=== PATIENT | male | born 1950 | race Caucasian/White ===

== ENCOUNTER → 2017-04-12 | Outpatient (CLI) | payer MEDICARE, OTHER ==
[~2017-04-12] MED LIST: AMLO5TAB2 PO; ATOR20TA66 PO; ENAL20TA PO; MELO15TA39 PO; METF500T4 PO; PITA2TAB2 PO
--- NOTE | 2017-04-12 10:31 | Diagnostic Imaging Report ---
PA and lateral views of the chest. INDICATION: Cough. FINDINGS: The lungs are clear. The heart size is normal. There is no effusion or pneumothorax The mediastinum and rosalba appear unremarkable. There is bridging syndesmophytes in the thoracic spine. IMPRESSION: Unremarkable exam. Dictated by: Dictated on workstation # [id number]
== END ==
LOC: RAD 08:51
PROVIDERS: ATTEND Family Medicine
DX: R05 Cough (principal)
CPT/HCPCS: 71020

== ENCOUNTER 2017-08-25 15:01 | Outpatient (CLI) | payer MEDICARE, OTHER ==
[~2017-08-25] VITALS: Ht 182.9 cm; Wt 112.5 kg
[~2017-08-25 15:01] MED LIST changes: -MELO15TA39 PO; -PITA2TAB2 PO
[2017-08-25] MEDS ORDERED: PITA2TAB2 PO (15:24)
[2017-08-25] MEDS ORDERED: MELO15TA39 PO (15:24)
== END 2017-08-25 15:27 ==
LOC: PREOP 15:01
PROVIDERS: ATTEND Surgery
DX: Z01.818 Encounter for other preprocedural examination (principal); C43.9 Malignant melanoma of skin, unspecified

== ENCOUNTER 2017-09-01 09:54 | Day surgery (SDC) | payer MEDICARE, OTHER ==
[~2017-09-01] VITALS: Ht 182.9 cm; Wt 112.5 kg
[~2017-09-01 09:54] MED LIST changes: +MELO15TA39 PO; +PITA2TAB2 PO
[2017-09-01 10:05] VITALS: BP 135/81
[2017-09-01] MEDS ORDERED: ceFAZolin 2 GM/NS 50 ML IV ONE (10:30)
[2017-09-01] MEDS ORDERED: BUPIVACAINE 0.5% 30 ML (SENSORCAINE) VIAL ONE (11:45)
[2017-09-01] MEDS ORDERED: LIDOCAINE 1% INJ 20 ML (XYLOCAINE) VIAL ONE (11:45)
[2017-09-01] MEDS ORDERED: MIDAZOLAM 2 MG/2 ML (VERSED) VIAL ONE (11:46)
[2017-09-01] MEDS ORDERED: fentaNYL INJECTION 100 MCG/2 ML AMP ONE (11:46)
--- NOTE | 2017-09-01 13:09 | Progress Note-Pre Operative ---
Pre-Operative Progress Note H&P Reviewed The H&P was reviewed, patient examined and no changes noted. Date Seen by Provider: Sep 01, 2017 Time Seen by Provider: 12:00 Date H&P Reviewed: Sep 01, 2017 Time H&P Reviewed: 12:00 Pre-Operative Diagnosis: melanoma back JEM VÁZQUEZ DO Sep 01, 2017 13:08
--- NOTE | 2017-09-01 13:10 | Progress Note-Post Operative ---
Post-Operative Progess Note Surgeon (s)/Meter Mechanic (s) Surgeon JEM VÁZQUEZ DO Meter Mechanic: na Pre-Operative Diagnosis melanoma back Post-Operative Diagnosis same Procedure & Operative Findings Date of Procedure 09/01/17 Procedure Performed/Findings wide excision melanoma 3x7 cm Anesthesia Type mac c local 30 mL 50/50 -1% lidocaine 0.5% marcaine Estimated Blood Loss Estimated blood loss (mL): minimal Specimens/Packing Specimens Removed melanoma JEM VÁZQUEZ DO Sep 01, 2017 13:10
[2017-09-01] MEDS ORDERED: HYDR-3812 PO (13:11)
--- NOTE | 2017-09-01 13:12 | Discharge Inst-Simple/Standard ---
Discharge Inst-Standard Discharge Medications New, Converted or Re-Newed RX: RX on Chart Patient Instructions/Follow Up Plan of Care/Instructions/FU: 2 weeks Deena Activity as Tolerated: No Discharge Diet: Regular Diet Other Inst to Patient Follow up Appt: Make appointment for 2 week. Instructions: No lifting greater than 10 pounds. No strenuous activity. May shower in 24 hours, no tub bath or soaking. Use incentive spirometer at home as directed. No Smoking Skin/Wound Care: May remove bandages in 24 hours. Symptoms to Report: Appetite Changes, Extremity Discoloration, Numbness/Tingling, Swelling Increased , Bleeding Excessive, Eyesight Changes, Pain Increased, Urine Color Change, Constipation(Persistent), Fever over 101 degree F, Pain/Pressure in chest, Urinating Difficulty, Cough Up/Vomit Blood, Heart Beat Irreg/Pounding, Pain/ Pressure in jaw, Vaginal Bleeding Increase, Cramps in feet or legs, Lightheadedness, Pain/Pressure in shoulder, Diarrhea(Persistent), Memory Changes Suddenly, Questions/Concerns, Weight gain consecutive days, Dizziness/ Fainting, Nausea/Vomiting, Shortness of Breath, Weight gain over 2 pounds If questions or concerns contact your physician Or seek help at emergency department. JEM VÁZQUEZ DO Sep 01, 2017 13:12
[2017-09-01] MEDS ORDERED: ONDANSETRON 4 MG/2 ML (SDV) Z0FRAN IVP PRN (13:30)
[2017-09-01] MEDS ORDERED: fentaNYL INJECTION 100 MCG/2 ML AMP IVP PRN (13:30)
[2017-09-01 13:45] VITALS: BP 139/80
[2017-09-01 13:50] VITALS: BP 139/80
[2017-09-01 14:15] VITALS: BP 136/84
--- NOTE | 2017-09-08 23:53 | OPERATIVE REPORT ---
DATE OF SERVICE: 09/01/2017 PREOPERATIVE DIAGNOSIS: Melanoma, back. POSTOPERATIVE DIAGNOSIS: Melanoma, back. PROCEDURE: Wide excision melanoma 3 x 7 cm. ANESTHESIA: MAC with local, 30 mL of 0.5% Marcaine and 1% lidocaine 50:50 ratio. SURGEON: Jem Shaffer DO ESTIMATED BLOOD LOSS: Minimal. COMPLICATIONS: None. INDICATIONS: The patient is a 67-year-old male with biopsy demonstrating melanoma. He was explained risks and benefits of procedure and wished to proceed with procedure. Consent was signed in the chart. PROCEDURE: The patient was taken to the operating suite, was prepped and draped in sterile fashion. Surgical pause was performed. Elliptical incision around the scar was made after local anesthetic was infiltrated into the area. Overall, dimensions 3 x 7 cm. The skin and subcutaneous tissues were removed with both sharp and cautery dissection. Once removed, the specimen was labeled with a short suture superiorly and long suture lateral. The skin was then mobilized and the skin was then closed using 2-0 Prolene in a vertical mattress fashion. After this, the skin was then washed and dried and sterile bandage was applied. The patient tolerated procedure well without any complications and was taken to recovery room in stable condition. Job ID: [id number] DocumentID: [id number] Dictated Date: 09/08/2017 17:10:34 International Marketing Specialist Date: 09/08/2017 23:52:47 Dictated By: JEM SHAFFER DO
== END 2017-09-01 14:30 | disposition home or self-care (01) ==
LOC: SDC 09:54
PROVIDERS: ATTEND Surgery
DX: L90.5 Scar conditions and fibrosis of skin (principal); C43.59 Malignant melanoma of other part of trunk; E11.9 Type 2 diabetes mellitus without complications; I10 Essential (primary) hypertension; G47.33 Obstructive sleep apnea (adult) (pediatric); Z79.84 Long term (current) use of oral hypoglycemic drugs; Z79.899 Other long term (current) drug therapy; Z87.891 Personal history of nicotine dependence
CPT/HCPCS: 82962; 87081

== ENCOUNTER → 2017-11-16 | Outpatient (CLI) | payer MEDICARE, OTHER ==
[~2017-11-16] MED LIST changes: +ACHD5005 PO
--- NOTE | 2017-11-16 10:00 | Diagnostic Imaging Report ---
INDICATION: PERSISTENT COUGH. COMPARISON: 04/12/2017. FINDINGS: Frontal and lateral views of the chest demonstrate normal heart size and pulmonary vascularity. The lungs are clear. There are no signs of infiltrate, pleural effusions, or pneumothoraces. The visualized osseous structures show no acute abnormalities. IMPRESSION: No acute process. No signs of infiltrates, effusions, or pneumothoraces. Dictated by: Dictated on workstation # [id number]
== END ==
LOC: RAD 09:05
PROVIDERS: ATTEND Family Medicine
DX: R05 Cough (principal)
CPT/HCPCS: 71046

== ENCOUNTER 2018-01-10 18:00 | Outpatient (RCR) | payer MEDICARE, OTHER ==
[~2018-01-10 18:00] MED LIST changes: -METF500T4 PO; +METF500T5 PO
== END 2018-04-10 | disposition home or self-care (01) ==
LOC: DSME 18:00
PROVIDERS: ATTEND Family Medicine
DX: E11.9 Type 2 diabetes mellitus without complications (principal); I10 Essential (primary) hypertension; E66.9 Obesity, unspecified

== ENCOUNTER → 2019-10-16 | Outpatient (CLI) | payer MEDICARE, OTHER ==
[~2019-10-16] MED LIST changes: -AMLO5TAB2 PO; +AMLO5TAB9 PO; +METF-397 PO; -METF500T5 PO
--- NOTE | 2019-10-16 12:06 | Diagnostic Imaging Report ---
INDICATION: Diabetes and yearly checkup. TIME OF EXAMINATION: 11:42 AM. COMPARISON: 11/16/2017. FINDINGS: The heart size is normal. The pulmonary vascularity is unremarkable. The lungs are clear. No infiltrate, effusion, or pneumothorax is detected. IMPRESSION: No acute cardiopulmonary process is detected. Dictated by: Dictated on workstation # [id number]
== END ==
LOC: RAD 10:53
PROVIDERS: ATTEND Family Medicine
DX: Z00.00 Encounter for general adult medical examination without abnormal findings (principal); E11.9 Type 2 diabetes mellitus without complications
CPT/HCPCS: 71046

== ENCOUNTER → 2019-12-15 | Outpatient (CLI) | payer MEDICARE, OTHER ==
--- NOTE | 2019-12-15 10:04 | Diagnostic Imaging Report ---
PROCEDURE: CT abdomen and pelvis without contrast. TECHNIQUE: Multiple contiguous axial images were obtained through the abdomen and pelvis without the use of intravenous contrast. Auto Exposure Controls were utilized during the CT exam to meet ALARA standards for radiation dose reduction. INDICATION: Hematuria. History of kidney stones. COMPARISON: CT abdomen and pelvis on 11/01/2007. FINDINGS: The heart is unremarkable. The included lung bases are clear. A urolithiasis is visualized in the proximal right ureter measuring 1.0 cm and approximately 900 Hounsfield units. There is mild right-sided hydroureteronephrosis. Bilateral nonobstructing renal calculi are seen in the kidneys, with the largest in the superior pole the left kidney measuring 4 mm and the largest in the inferior pole of the right kidney measuring 2 mm. There is hepatic steatosis. The gallbladder is unremarkable. The spleen, pancreas, and adrenal glands have a normal noncontrast CT appearance. There is no pathologically enlarged mesenteric or retroperitoneal adenopathy. The bowel loops are nondilated. A few scattered diverticuli are seen in the descending and sigmoid colon. The appendix is visualized in the right lower quadrant and has an unremarkable appearance. There is no free fluid or free air. There is calcified aortic and iliac atherosclerotic plaque. Degenerative changes are seen throughout the thoracic and lumbar spine without acute abnormality. A fat-containing periumbilical hernia is noted. The urinary bladder is nondistended. There is no free air, loculated collection, or adenopathy in the pelvis. IMPRESSION: 1. Obstructive urolithiasis in the proximal right ureter just past the right renal pelvis measuring 1.0 cm and 900 Hounsfield units. Mild right-sided hydroureteronephrosis is present. 2. Bilateral nonobstructing renal calculi. No hydronephrosis is seen on the left. 3. Hepatic steatosis. 4. Scattered diverticuli without evidence of acute diverticulitis. Dictated by: Dictated on workstation # [id number]
== END ==
LOC: RAD 09:32
PROVIDERS: ATTEND Urology
DX: N13.2 Hydronephrosis with renal and ureteral calculous obstruction (principal); K76.0 Fatty (change of) liver, not elsewhere classified; K57.30 Diverticulosis of large intestine without perforation or abscess without bleeding
CPT/HCPCS: 74176

== ENCOUNTER → 2019-12-19 | Outpatient (CLI) | payer MEDICARE, OTHER ==
--- NOTE | 2019-12-19 16:10 | Diagnostic Imaging Report ---
INDICATION: Hematuria and ureteral stone. TIME OF EXAM: 3:37 p.m. COMPARISON: Correlation is made with recent CT study from 12/15/2019. FINDINGS: There appears to have been some fragmentation of stone in the region of the right renal pelvis on recent CT. This remains within the renal pelvis, although there is also a calcific density in the distribution of the proximal left ureter adjacent to L2 vertebral body measuring 4 mm. No other calculi along the course of ureters is seen. Bowel gas pattern is unremarkable. Pelvic phleboliths are noted. IMPRESSION: Right-sided renal pelvic and proximal ureteric calcific densities. There appears to have been some fragmentation of calculus in the right renal pelvis since CT study from four days earlier. Dictated by: Dictated on workstation # [id number]
== END ==
LOC: RAD 15:20
PROVIDERS: ATTEND Urology
DX: N20.1 Calculus of ureter (principal); N20.0 Calculus of kidney
CPT/HCPCS: 74018

== ENCOUNTER 2019-12-25 05:43 | Outpatient (CLI) | payer MEDICARE, OTHER ==
[~2019-12-25] VITALS: Ht 182 cm; Wt 117.0 kg
[2019-12-25] MEDS ORDERED: ATOR20TA66 PO (15:11)
[2019-12-25] MEDS ORDERED: GLIP10TA13 PO (15:11)
[2019-12-25] MEDS ORDERED: MELO15TA39 PO (15:11)
== END 2019-12-25 15:25 | disposition home or self-care (01) ==
LOC: PREOP 05:43
PROVIDERS: ATTEND Urology
DX: Z01.818 Encounter for other preprocedural examination (principal)

== ENCOUNTER 2019-12-27 08:23 | Day surgery (SDC) | payer MEDICARE, OTHER ==
[~2019-12-27] VITALS: Ht 182 cm; Wt 117.0 kg
[2019-12-27] VITALS (9 sets, daily range): BP systolic 116–143; BP diastolic 65–80
[~2019-12-27 08:23] MED LIST changes: +GLIP10TA13 PO
[2019-12-27] MEDS ORDERED: LACTATED RINGERS 1,000 ML IV PRN (08:33)
[2019-12-27] MEDS ORDERED: cefTRIAXone FOR IV USE 1,000 MG in WATER (STERILE) FOR INJECTION 10 ML IV ONE (08:45)
[2019-12-27] MEDS ORDERED: CATHETER FLUSH 10 ML SYR IV PRN (09:00)
--- NOTE | 2019-12-27 09:06 | Diagnostic Imaging Report ---
HISTORY: Right ureteral stone TECHNIQUE: Frontal view of the abdomen COMPARISON: 12/19/2019 FINDINGS: Redemonstrated is a calcification in the region of the right renal pelvis which appears unchanged in size. There is also a 4 mm hyperdensity to the right of the L2 vertebral body which appears unchanged. There is mild irregularity at the right L3 transverse process which is chronic. There are degenerative changes in the lumbar spine and bilateral sacral iliac joints and the bilateral hips. Bowel loops are nondistended. No large collection of free air is seen. Phleboliths are seen in the pelvis. IMPRESSION: 1. Stable large calcification in the right renal pelvis with smaller 4 mm calcification adjacent to the L2 vertebral body. This appears unchanged compared to 12/19/2019. Dictated by: Dictated on workstation # [id number]
[2019-12-27] MEDS ORDERED: fentaNYL INJECTION 100 MCG/2 ML AMP ONE (09:33)
[2019-12-27] MEDS ORDERED: LIDOCAINE PF 2% 5 ML (XYLOCAINE) VIAL ONE (09:33)
[2019-12-27] MEDS ORDERED: proPOfol 200 MG/20 ML (DIPRIVAN) VIAL IV ONE (09:33)
[2019-12-27] MEDS ORDERED: SEVOFLURANE (ULTANE) 15 ML INHAL SOLN ONE ×3 (09:33→09:37)
[2019-12-27] MEDS ORDERED: ONDANSETRON 4 MG/2 ML (SDV) Z0FRAN ONE (09:33)
[2019-12-27] MEDS ORDERED: FUROSEMIDE 40 MG/4 ML INJ (LASIX) ONE (09:34)
[2019-12-27] MEDS ORDERED: KETOROLAC 30 MG/ML VIAL ONE (09:34)
--- NOTE | 2019-12-27 09:34 | Progress Note-Pre Operative ---
Pre-Operative Progress Note H&P Reviewed The H&P was reviewed, patient examined and no changes noted. Date Seen by Provider: Dec 27, 2019 Time Seen by Provider: :33 Date H&P Reviewed: Dec 27, 2019 Time H&P Reviewed: 09:33 Pre-Operative Diagnosis: RT PROXIMAL URETERAL AND RT PELVIC STONES KESHIA ARORA MD Dec 27, 2019 09:34
--- NOTE | 2019-12-27 09:35 | Progress Note-Post Operative ---
Post-Operative Progess Note Surgeon (s)/Rattlesnake Farmer (s) Surgeon KESHIA ARORA MD Rattlesnake Farmer: NONE Pre-Operative Diagnosis RT PROXIMAL URETERAL AND RT PELVIC STONES Post-Operative Diagnosis SAME Procedure & Operative Findings Date of Procedure 12/27/19 Procedure Performed/Findings RT ESWL Anesthesia Type GENERAL Estimated Blood Loss Estimated blood loss (mL): NONE Specimens/Packing Specimens Removed NONE Packing: NONE KESHIA ARORA MD Dec 27, 2019 09:35
[2019-12-27] MEDS ORDERED: MIDAZOLAM 2 MG/2 ML (VERSED) VIAL ONE (09:36)
--- NOTE | 2019-12-27 09:38 | Discharge Inst-Urology ---
Discharge Inst-Urology Reconcile Patient Problems Problems Reviewed?: Yes Final Diagnosis RT URETERAL AND RENAL PELVIC STONES Patient Instructions/Follow Up Plan/Assessment/Instructions Please make appointment to been seen in office Sunday 01/07. KUB prior to it KUB on way home Post ESWL instructions Increase oral fluids for 48 hours and then as needed. Diet and Activity as tolerated. If questions or concerns contact your physician Or seek help at emergency department. KESHIA ARORA MD Dec 27, 2019 09:38
[2019-12-27] MEDS ORDERED: ROCURONIUM 10 MG/ML 5 ML SYRINGE IV ONE (10:43)
[2019-12-27] MEDS ORDERED: SUCCINYLCHOLINE INJ 100 MG/5 ML SYR ONE (10:43)
--- NOTE | 2019-12-27 11:41 | Anesthesia-General Post-Op ---
General Patient Condition Mental Status/LOC: Same as Preop Cardiovascular: Satisfactory Nausea/Vomiting: Absent Respiratory: Satisfactory Pain: Controlled Complications: Absent Post Op Complications Complications None Follow Up Care/Instructions Patient Instructions None needed. Anesthesia/Patient Condition Patient Condition Patient is doing well, no complaints, stable vital signs, no apparent adverse anesthesia problems. No complications reported per nursing. JOSE ROBBINS CRNA Dec 27, 2019 11:41
[2019-12-27] MEDS ORDERED: NITR-65 PO (12:36)
[2019-12-27] MEDS ORDERED: TRM50T PO (12:36)
[2019-12-27] MEDS ORDERED: TMSL.4C PO (12:36)
--- NOTE | 2019-12-27 13:22 | Diagnostic Imaging Report ---
EXAMINATION: Abdomen 1 view INDICATION: POST ESWL COMPARISON: 12/27/2019 FINDINGS: There is an unchanged 10 mm calcification projecting over the right kidney consistent with stone. An 18 mm calcification projecting over the left kidney is also unchanged. 4 mm calcification adjacent to L2 is also unchanged. No dilated bowel. There is degenerative disc disease in lumbar spine. There is hip joint osteoarthritis. IMPRESSION: 1. Unchanged calcifications projecting over both kidneys in the right ureter. Dictated by: Dictated on workstation # [id number]
--- NOTE | 2019-12-27 14:16 | OPERATIVE REPORT ---
DATE OF SERVICE: 12/27/2019 PREOPERATIVE DIAGNOSIS: Right proximal ureteral and right ureteropelvic junction renal stones. POSTOPERATIVE DIAGNOSIS: Right proximal ureteral and right ureteropelvic junction renal stones. OPERATION PERFORMED: Right extracorporeal shock wave lithotripsy. SURGEON: Chacho Arora MD. ANESTHESIA: General. COMPLICATIONS: None. DESCRIPTION OF PROCEDURE: Under satisfactory general anesthesia, the patient in supine position on the ESWL table, we first localized the right proximal stone and delivered a total of 1000 shocks at kV of 6 with complete fragmentation and disappearance of the stone. and localized the right UVJ renal stone and delivered 2000 shocks at kV of 6 again with complete fragmentation. The patient received 40 mg of Lasix and 30 mg of Toradol IV at the end of the procedure. He tolerated the procedure and anesthesia well and was sent to recovery room in stable condition. Job ID: [id number] DocumentID: [id number] Dictated Date: 12/27/2019 11:21:45 Leadership Coach Date: 12/27/2019 14:15:21 Dictated By: CHACHO ARORA MD
== END 2019-12-27 13:30 | disposition home or self-care (01) ==
LOC: SDC 08:23
PROVIDERS: ATTEND Urology
DX: N20.2 Calculus of kidney with calculus of ureter (principal); N40.0 Benign prostatic hyperplasia without lower urinary tract symptoms; E11.9 Type 2 diabetes mellitus without complications; I10 Essential (primary) hypertension; E78.5 Hyperlipidemia, unspecified; G47.33 Obstructive sleep apnea (adult) (pediatric); M19.91 Primary osteoarthritis, unspecified site; Z79.84 Long term (current) use of oral hypoglycemic drugs; Z79.899 Other long term (current) drug therapy; Z11.2 Encounter for screening for other bacterial diseases; Z87.891 Personal history of nicotine dependence
CPT/HCPCS: 74018; 82962; 87081

== ENCOUNTER → 2020-01-08 | Outpatient (CLI) | payer MEDICARE, OTHER ==
[~2020-01-08] MED LIST changes: +NITR-65 PO; +TMSL.4C PO; +TRM50T PO
--- NOTE | 2020-01-08 10:01 | Diagnostic Imaging Report ---
CLINICAL INDICATION: Patient with right ureteral/renal stent. EXAM: X-ray of the abdomen, supine view. COMPARISON: X-ray of the abdomen dated 12/27/2019. CT scan of the abdomen and pelvis dated 12/15/2019. FINDINGS: Stable grossly 11 mm area of amorphous calcification overlying the expected region of the right renal pelvis which correlates to the stone seen on the prior CT scan and prior x-ray. There is a roughly 5 mm calcification seen to the right of the L2 vertebra which may be a fragment within the right ureter or adjacent soft tissue. There is a nonobstructed bowel gas pattern. There is no evidence of abdominal free air. There are hypertrophic spurs seen throughout the thoracic spine. There is hypertrophic spurring of the acetabular roofs which may be seen with pincer-type femoroacetabular impingement. Phleboliths are seen in the left pelvis and low right pelvis region. IMPRESSION: 1. Again seen is calcification overlying the expected right renal pelvis region. 2. There is a small roughly 5 mm calcification seen to the right of the L2 vertebra which may possibly be in the right proximal ureter/adjacent soft tissue. 3. The remainder of this exam shows no significant interval change compared to the prior study of comparison. Dictated by: Dictated on workstation # [id number]
== END ==
LOC: RAD 09:06
PROVIDERS: ATTEND Urology
DX: N20.2 Calculus of kidney with calculus of ureter (principal)
CPT/HCPCS: 74018

== ENCOUNTER → 2020-01-29 | Outpatient (CLI) | payer MEDICARE, OTHER ==
--- NOTE | 2020-01-29 10:51 | Diagnostic Imaging Report ---
INDICATION: Follow-up right kidney stone. Time of exam 10:38 AM Correlation is made with prior radiograph from 01/08/2020. Previously noted calcific density overlying the medial aspect of the right renal shadow and expected location of the right renal pelvis is again noted and appears unchanged. Calcific density overlying the right transverse process of L2 is again noted. This is unchanged. Calcific densities left hemipelvis are unchanged and may represent phlebolith. No new abnormalities seen. Bowel gas pattern is nonobstructed. IMPRESSION: No significant change in the abdominal radiograph and right abdominal calcifications when compared to examination from 01/08/2020. Dictated by: Dictated on workstation # [id number]
== END ==
LOC: RAD 10:02
PROVIDERS: ATTEND Urology
DX: N20.1 Calculus of ureter (principal)
CPT/HCPCS: 74018

== ENCOUNTER → 2020-02-05 | Outpatient (CLI) | payer MEDICARE, OTHER ==
--- NOTE | 2020-02-05 11:10 | Diagnostic Imaging Report ---
INDICATION: Post ESWL, urolithiasis. FINDINGS: A large calculus measuring 14 mm projects at the level of the right renal pelvis. Bilateral pelvic calcifications are unchanged from the study of 01/29/2020. IMPRESSION: A large stone projects at the level of the right renal pelvis. Pelvic calcifications are unchanged. No new calculus. Stones partially visualized overlying the upper pole of the left kidney are also noted. Dictated by: Dictated on workstation # [id number]
== END ==
LOC: RAD 09:44
PROVIDERS: ATTEND Urology
DX: N20.2 Calculus of kidney with calculus of ureter (principal)
CPT/HCPCS: 74018

== ENCOUNTER → 2020-02-16 | Outpatient (CLI) | payer MEDICARE, OTHER ==
--- NOTE | 2020-02-16 09:37 | Diagnostic Imaging Report ---
Indication: Right nephrolithiasis KUB 9:25 AM There is a 13 mm calculus projecting over the right renal pelvis. Bowel gas pattern is normal. There are degenerative changes of the lumbar spine. IMPRESSION: Right nephrolithiasis Dictated by: Dictated on workstation # [id number]
== END ==
LOC: RAD 08:58
PROVIDERS: ATTEND Urology
DX: N20.0 Calculus of kidney (principal)
CPT/HCPCS: 74018

== ENCOUNTER → 2021-01-20 | Outpatient (CLI) | payer MEDICARE, OTHER ==
[~2021-01-20] MED LIST changes: +AMLO-250 PO; -AMLO5TAB9 PO; -ENAL20TA PO; +ENAL20TA16 PO
== END ==
LOC: CARD 14:43
PROVIDERS: ATTEND Internal Medicine Cardiovascular Disease
DX: I11.9 Hypertensive heart disease without heart failure (principal)
CPT/HCPCS: 93306

== ENCOUNTER → 2021-02-13 | Outpatient (CLI) | payer MEDICARE, OTHER ==
[~2021-02-13] MED LIST changes: +RT-ALBUTEROL SULF 2.5 MG/3 ML PRE-MIX VIAL INH ONE
--- NOTE | 2021-02-13 11:35 | Diagnostic Imaging Report ---
PATIENT HISTORY: Dyspnea. TECHNIQUE: Two views of the chest. COMPARISON: 10/16/2019. FINDINGS: The lung volumes are normal. No focal consolidation is seen. Aeration appears stable since 10/16/2019. No large pleural effusion or pneumothorax is seen. The cardiomediastinal silhouette is normal in size and contour. No acute osseous abnormality is seen. There appear to be flowing anterior osteophytes in the thoracic spine, consistent with diffuse idiopathic skeletal hyperostosis. IMPRESSION: No acute pulmonary abnormality seen. Dictated by: Dictated on workstation # [id number]
== END ==
LOC: RT 10:30
PROVIDERS: ATTEND Internal Medicine
DX: R06.00 Dyspnea, unspecified (principal)
CPT/HCPCS: 71046; 94060; 94726; 94729

== ENCOUNTER → 2021-02-26 | Outpatient (CLI) | payer MEDICARE, OTHER ==
[~2021-02-26] VITALS: Ht 182 cm; Wt 114.0 kg
[~2021-02-26] MED LIST changes: +CATHETER FLUSH 10 ML SYR IV PRN; +REGADENOSON 0.4 MG/5 ML SYR (LEXISCAN) IV ONE; -RT-ALBUTEROL SULF 2.5 MG/3 ML PRE-MIX VIAL INH ONE
[2021-02-26 09:15] VITALS: BP 149/71
--- NOTE | 2021-02-26 11:26 | Cardiology Stress Test Report ---
Stress Test Report Date of Procedure/Referring: Date of Procedure: February 26, 2021 PCP Rolando Yoder MD Admitting Physician Arnold Stovall MD Indications: HTN Baseline Heart Rate: 65 Baseline Blood Pressure: Blood Pressure Systolic: 149 Blood Pressure Diastolic: 71 Baseline Vitals Vital Signs Date Time Temp Pulse Resp B/P (MAP) Pulse Ox O2 Delivery O2 Flow Rate FiO2 02/26/21 09:15 65 149/71 (97) 99 Baseline EKG: Baseline EKG: NSR Summary After explaining the procedure to the patient, he signed a consent and then brought to the stress nuclear laboratory. Patient received 0.4 mg Lexiscan for stress test, ECG, heart rate and blood pressure were monitored continuously. Resting and stress dose of radio tracer were injected, imaging was acquired and reviewed in short axis, horizontal long axis and vertical long axis views. TID: 1.08 SSS: 10 SDS: 5 EF: 38 1. Patient tolerated Lexiscan well 2. Reversible ischemia involving the anteroapical segment true apex, inferoapical segment and inferior wall 3. Prominent left ventricle with diffuse left ventricular hypokinesia, EF 38% ROLANDO YODER MD February 26, 2021 11:26
== END ==
LOC: CARD 07:42
PROVIDERS: ATTEND Internal Medicine Cardiovascular Disease
DX: I10 Essential (primary) hypertension (principal); R07.9 Chest pain, unspecified
CPT/HCPCS: 78452; 93017; A9502

== ENCOUNTER 2021-03-07 09:00 | Day surgery (SDC) | payer MEDICARE, OTHER ==
[2021-03-07] VITALS (14 sets, daily range): BP systolic 116–147; BP diastolic 69–86
[~2021-03-07] VITALS: Ht 184 cm; Wt 116.0 kg
[2021-03-07 07:22] LABS: HEMATOCRIT 40 % (40-54); HEMOGLOBIN 13.1 g/dL (13.3-17.7); MEAN CORPUSCULAR HEMOGLOBIN 30 pg (25-34); MEAN CORPUSCULAR HGB CONC 33 g/dL (32-36); MEAN CORPUSCULAR VOLUME 90 fL (80-99); MEAN PLATELET VOLUME 10.1 fL (9.0-12.2); PLATELET COUNT 190 10^3/uL (130-400); WHITE BLOOD COUNT 5.8 10^3/uL (4.3-11.0)
[2021-03-07 07:38] LABS: PROTHROMBIN TIME PATIENT 13.5 SEC (12.2-14.7)
[2021-03-07 07:41] LABS: ALBUMIN 4.2 GM/DL (3.2-4.5); BILIRUBIN,TOTAL 0.6 MG/DL (0.1-1.0); CALCIUM 9.8 MG/DL (8.5-10.1); CREATININE SERUM 1.29 MG/DL (0.60-1.30); POTASSIUM 3.9 MMOL/L (3.6-5.0)
--- NOTE | 2021-03-07 07:50 | Diagnostic Imaging Report ---
EXAM: CHEST 1 VIEW, AP/PA ONLY INDICATION: Coronary artery disease. COMPARISON: Chest radiograph 02/13/2021. FINDINGS: Normal heart size and central pulmonary vascularity. No focal pulmonary opacity. No pleural effusion or pneumothorax. No acute osseous findings. IMPRESSION: No acute cardiopulmonary findings. Dictated by: Dictated on workstation # [id number]
--- NOTE | 2021-03-07 08:07 | Conscious Sedation/ASA ---
Conscious Sedation Pre-Proced Time 08:06 ASA Score 3 For ASA 3 and 4: Consider anesthesia and medical clearance. Also, for patients with a history of failed moderate sedation consider anesthesia. Airway Lungs Heart ASA score ASA 1: a normal healthy patient ASA 2: a patient with a mild systemic disease (mid diabetes, controlled hypertension, obesity x ASA 3: a patient with a severe systemic disease that limits activity (angina, COPD, prior Myocardial infarction) ASA 4: a patient with an incapacitating disease that is a constant threat to life (CHF, renal failure) ASA 5: a moribund patient not expected to survive 24 hrs. (ruptured aneurysm) ASA 6: a declared brain- patient whose organs are being harvested. For emergent operations, add the letter E after the classification Mallampati Classification Grade 3 Sedation Plan Analgesia, Amnesia, Plan communicated to team members, Discussed options with patient/fam, Discussed risks with patient/fam The patient is an appropriate candidate to undergo the planned procedure, sedation, and anesthesia. The patient immediately re-assessed prior to indication. ROLANDO JACOBSEN MD Mar 07, 2021 08:07
--- NOTE | 2021-03-07 08:41 | Cardiac Cath Report ---
Cardiac Cath Report Physician (s)/Credit Operations Specialist (s) Physician ROLANDO JACOBSEN MD Pre-Procedure Diagnosis Pre-Procedure Diagnosis: Coronary artery disease Post-Procedure Note Procedure Start Date: Mar 07, 2021 Name of Procedure: Left heart catheterization Aortic arch angiogram Findings/Procedure Note PROCEDURE NOTE: 71 years old gentleman with history of hypertension, hyperlipidemia, has been having chest pain, had an abnormal stress test, scheduled for cardiac catheterization possible PTCA. After explaining the procedure to the patient, all pros and cons were explained, all questions were answered. The patient signed the consent and then he was placed on the cardiac catheterization laboratory. Groin was prepped SL fashion local anesthesia was used. Sheath placed in the right radial artery, [place] catheter was advanced to the left ventricular cavity, pressure was measured pullback LV to aorta was done then intubated the left coronary system and angiogram was done, I was unable to intubate the right coronary system with the [place] catheter, exchanged over a long J-wire and used Raymond catheter, intubated the right coronary artery and angiogram was done. Patient has significant tortuosity in the brachiocephalic artery, I had difficulty advancing the wire, I decided to evaluate the aortic arch angiogram. Angiogram was done. At the end of the procedure the sheath was removed. Vascular band deployed FINDINGS: Hemodynamics LV 104/13, end-diastolic pressure of 13 Aorta 104/56 mean of 76 ANATOMY: Left Main is calcified artery with moderate to severe distal stenosis involving the ostium of the circumflex artery Left Anterior Descending is calcified proximally, with severe stenosis at the midportion involving the ostium of a diagonal artery Left Circumflex is moderate in size with no obstructive disease Right Coronary Artery is tortuous artery with mild to moderate disease nonobstructive disease LV Gram was not done, pressure was measured Aorta arch angiogram was done showing mild hypertensive changes, no dissection or aneurysm, the brachiocephalic artery is tortuous artery with no obstructive disease, left subclavian artery has no obstructive disease, the left carotid artery was not well visualized CONCLUSION: 1. Heavily calcified left main with moderate to severe stenosis distally involving the ostium of circumflex artery 2. Calcified proximal LAD with moderate severe stenosis at the mid LAD involving the ostium of a diagonal artery 3. Tortuous right coronary artery, dominant artery with mild disease 4. Normal left ventricular end-diastolic pressure 5. Hypertensive changes in the aortic arch, normal great vessels of the neck DISCUSSION AND RECOMMENDATION: I will arrange for referral for CABG evaluation Anesthesia Type: Conscious Sedation Estimated blood loss (mL): 10 ml Contrast Amount: 70 ml Total Radiation Dose: 983 mGy Post-Procedure Diagnosis Post-operative diagnosis: Chest pain Coronary artery disease Hypertension Hyperlipidemia ROLANDO JACOBSEN MD Mar 07, 2021 8:41 am
--- NOTE | 2021-03-07 08:49 | Discharge Inst-Post CATH ---
Discharge Inst-CATH/EP Problems Reviewed?: Yes Post Cardiac Cath/EP D/C Inst Follow Up/Plan Hold Metformin for [address] Yoder's office in 2 to [address] Gonsalez office <b>CARDIAC CATH/EP PROCEDURE DISCHARGE INSTRUCTIONS</b> ACTIVITY * Go Home directly and rest. * Limit activity of the leg (or wrist if it was used) for 7 days including aerobics, swimming, jogging, bicycling, etc. * Restrict stair-climbing for 7 days if possible, if not, climb up with your non-cath leg, then bring together on the same step. * Avoid lifting, pushing, pulling or excessive movement of the affected extremity for 7 days. * Customary sexual activity may be resumed after 2 days-use caution not to use a position that strains or causes pain to the affected extremity. * No driving for 24 hours. * NO SMOKING. * Avoid straining for bowel movements for 7 days. * Gentle walking on level ground is allowed. * Returning to work will depend on the type of procedure and the results. Your doctor will discuss this with you. CALL YOUR DOCTOR FOR ANY OF THE FOLLOWING: *If bleeding from the puncture site occurs- Apply gentle pressure to site with clean cloth and call your doctor or EMS. * If a knot or lump forms under the skin, increases in size, or causes pain. * If bruising appears to be worsening or moving further down your leg instead of disappearing. * Temperature above 101 F. CARE OF YOUR GROIN INCISION; * Bruising or purple discoloration of the skin near the puncture site is common. * You may shower only, no bathtub bathing for 5 days. Be careful to avoid slipping as your leg may feel stiff. * If a closure device was used on your femoral artery, please see the attached guide regarding care of the device and your leg. * Leave dressing on FOR 24 hours. CARE OF YOUR WRIST INCISION; * Bruising or purple discoloration of the skin near the puncture site is common. * You may shower. * DO NOT submerge wrist. * Leave dressing on FOR 24 hours. ROLANDO YODER MD Mar 07, 2021 8:49 am
[~2021-03-07 09:00] MED LIST changes: +ASPI-1238 PO; -CATHETER FLUSH 10 ML SYR IV PRN; +CHOL100048 PO; +FEXO-46 PO; +HEParin (CATH LAB) 2,000 ML IV ONE; +HEParin 1000 UNIT/ML (10ML VIAL) FOR BOLUS ONE; +LIDOCAINE 1% INJ 20 ML 20 ML VIAL ONE; +MIDAZOLAM 5 MG/5 ML (VERSED) VIAL ONE; +MULT-1136 PO; +NITRO DRIP 25000 MCG/D5W 250 ML IV ONE; +NS IV 1000 ML 1,000 ML IV SCH; +NS IV 1000 ML 1,000 ML ONE; -REGADENOSON 0.4 MG/5 ML SYR (LEXISCAN) IV ONE; +VERAPAMIL 5 MG/2 ML (CALAN) VIAL IV ONE; +ZINC50TA11 PO; +fentaNYL INJ 100 MCG/2 ML AMP ONE
== END 2021-03-07 12:30 | disposition home or self-care (01) ==
LOC: CATH 09:00 → CSD 09:14 → CATH 12:30
PROVIDERS: ATTEND Internal Medicine Cardiovascular Disease
DX: I25.10 Atherosclerotic heart disease of native coronary artery without angina pectoris (principal); I10 Essential (primary) hypertension; E78.5 Hyperlipidemia, unspecified; E78.00 Pure hypercholesterolemia, unspecified; E11.9 Type 2 diabetes mellitus without complications; G47.33 Obstructive sleep apnea (adult) (pediatric); Z79.84 Long term (current) use of oral hypoglycemic drugs; Z79.82 Long term (current) use of aspirin; Z79.899 Other long term (current) drug therapy; Z87.891 Personal history of nicotine dependence
CPT/HCPCS: 36221; 71045; 80053; 85027; 85610; 85730; 87081; 93458; C1894; 36415

== ENCOUNTER → 2022-02-17 | Outpatient (CLI) | payer MEDICARE, OTHER ==
[~2022-02-17] MED LIST changes: -FEXO-46 PO; -HEParin (CATH LAB) 2,000 ML IV ONE; -HEParin 1000 UNIT/ML (10ML VIAL) FOR BOLUS ONE; -LIDOCAINE 1% INJ 20 ML 20 ML VIAL ONE; -MIDAZOLAM 5 MG/5 ML (VERSED) VIAL ONE; +NF-ALLE180 PO; -NITRO DRIP 25000 MCG/D5W 250 ML IV ONE; -NS IV 1000 ML 1,000 ML IV SCH; -NS IV 1000 ML 1,000 ML ONE; -VERAPAMIL 5 MG/2 ML (CALAN) VIAL IV ONE; -fentaNYL INJ 100 MCG/2 ML AMP ONE
== END ==
LOC: CARD 12:00
PROVIDERS: ATTEND Physician Assistant
DX: I11.9 Hypertensive heart disease without heart failure (principal)
CPT/HCPCS: 93306

== ENCOUNTER → 2022-03-18 | Outpatient (CLI) | payer MEDICARE, OTHER ==
[~2022-03-18] MED LIST changes: +CATHETER FLUSH 10 ML SYR IVP PRN
[2022-03-18 09:12] VITALS: BP 143/67
== END ==
LOC: CARD 08:30
PROVIDERS: ATTEND Physician Assistant
DX: I10 Essential (primary) hypertension (principal)
CPT/HCPCS: 78452; 93017; A9502